=== PATIENT | female | born 1960 | race American Indian/Alaskan Native ===

== ENCOUNTER 2019-03-20 07:37 | Outpatient (CLI) | payer BC ==
--- NOTE | 2019-03-20 10:02 | Fluoroscopy Report ---
Upper GI Indication: Coughing, possible gastroesophageal reflux Technique: Double contrast Findings: I see no constricting lesions of the esophagus. No signficant dysmotility was seen. No hiat al hernia was noted. Minimal grade 1 gastroesophageal reflux was seen with water siphon test but not with Valsalva maneuve r. No gastric ulcers or masses are seen. The duodenal bulb appears mildly deformed which may be due to s carring from prior ulcer disease but I do not see a definite active ulcer. Impression: 1. Minimal gastroesophageal reflux 2. Probable mild duodenal bulb scarring as above Fluoroscopy time: 3.8 minutes, 49 images Signer Name: Siva Deleon MD Signed: 03/20/2019 9:57 AM Workstation Name: [id number]
== END 2019-03-20 07:38 | disposition home or self-care (01) ==
LOC: FLUORO 07:37
PROVIDERS: ATTEND Internal Medicine
DX: K21.9 Gastro-esophageal reflux disease without esophagitis (principal)
CPT/HCPCS: 36415; 74247; 82785